=== PATIENT | female | born 1960 | race Asian ===

== ENCOUNTER 2019-05-09 17:32 | Emergency (ER) | payer OTHER ==
[~2019-05-09] VITALS: Ht 152.4 cm; Wt 51.3 kg
--- NOTE | 2019-05-09 17:38 | NUR ---
PT BIBFRIEND FOR DIZZINESS, PT VERBALLY RESPONSIVE, PT ON MONITOR, VSS, NAD NOTED, MD AT BS FOR EVAL
--- NOTE | 2019-05-09 17:53 | NUR ---
IV LINE STARTED BLOOD DRAWN AND SENT TO LAB.
[2019-05-09] MEDS ORDERED: diphenhydrAMINE HCL 50 MG/ML VIAL ONE (17:57)
[2019-05-09] MEDS ORDERED: diphenhydrAMINE HCL 50 MG/ML VIAL IV ONE (18:00)
[2019-05-09] MEDS ORDERED: IV NS 0.9% 500 ML BAG IV ONE (18:00)
[2019-05-09 18:13] LABS: BASOPHILS # (AUTO) 0.1 /CMM (0.0-0.2); BASOPHILS % (AUTO) 1.3 % (0.0-2.0); EOSINOPHILS % (AUTO) 1.7 % (0.0-6.0); HEMATOCRIT 41 % (33-45); HEMOGLOBIN 14.1 g/dL (11.5-14.8); LYMPHOCYTES # (AUTO) 3.3 /CMM (0.8-4.8); LYMPHOCYTES % (AUTO) 32.1 % (20.0-44.0); MEAN CORPUSCULAR HGB CONC 34 g/dl (31.0-36.0); MEAN CORPUSCULAR VOLUME 94 fL (82-100); MONOCYTES # (AUTO) 0.7 /CMM (0.1-1.30); MONOCYTES % (AUTO) 6.7 % (2.0-12.0); NEUTROPHILS # (AUTO) 6.1 /CMM (1.8-8.9); NEUTROPHILS % (AUTO) 58.2 % (43.0-81.0); PLATELET COUNT (AUTO) 249 /CMM (150-450); RED BLOOD CELL COUNT(AUTO) 4.43 MIL/uL (4.0-5.2); WHITE BLOOD COUNT (AUTO) 10.4 K/uL (4.3-11.0)
[2019-05-09 18:17] LABS: CALCIUM, SERUM 8.5 mg/dL (8.5-10.1); CARBON DIOXIDE 26 mmol/L (21-32); CHLORIDE 109 mmol/L (98-107); CREATININE 0.8 mg/dL (0.6-1.3); GLUCOSE 102 mg/dL (74-106); SODIUM SERUM 144 mmol/L (136-145); UREA NITROGEN, BLOOD 24 mg/dL (7-18)
[2019-05-09] MEDS ORDERED: POTASSIUM CHLORIDE 20 MEQ TAB.PRT.SR PO ONE ×2 (21:30→21:41)
[2019-05-09 21:39] VITALS: BP 160/95
--- NOTE | 2019-05-09 21:54 | NUR ---
Patient discharged to home in stable condition. Written and verbal after care instructions given. Patient verbalizes understanding of instruction. IV removed. Catheter intact and site benign. Pressure and 4x4 applied to site. No bleeding noted.
== END 2019-05-09 21:56 | disposition home or self-care (01) ==
LOC: ER 17:32
DX: R42 Dizziness and giddiness (principal); I10 Essential (primary) hypertension; R51 Headache; R94.31 Abnormal electrocardiogram [ECG] [EKG]; Z88.0 Allergy status to penicillin; Z60.2 Problems related to living alone
CPT/HCPCS: 36415; 70450; 71045; 80048; 84484; 85025; 85730; 93005; 96361; 96374; 99284; J1200; J7040